=== PATIENT | female | born 1950 | race Caucasian/White ===

== ENCOUNTER 2019-12-23 22:20 | Observation (INO) | payer OTHER ==
[~2019-12-23] VITALS: Ht 162.6 cm; Wt 86.9 kg
--- NOTE | 2019-12-23 22:51 | NUR ---
THIS PT WAS BIB HER GRANDDAUGHTER. SHE HAS A HX OF HTN. SHE FELL DOWN A STAIR A WEEK AGO. SHE STATES HER CP PAIN STARTED LAST SATURDAY, DESCRIBES IT MORE ABD PAIN THAT BECAME A SHARP CHEST PAIN YESTERDAY.
--- NOTE | 2019-12-23 22:53 | NUR ---
EKG DONE IN TRIAGE.
[2019-12-23] MEDS ORDERED: KETOROLAC 30 MG/1 ML ONE (22:56)
[2019-12-23] MEDS ORDERED: CYCLOBENZAPRINE 10 MG TABLET ONE (22:56)
[2019-12-23] MEDS ORDERED: KETOROLAC 30 MG/1 ML IM ONE (23:00)
[2019-12-23] MEDS ORDERED: CYCLOBENZAPRINE 10 MG TABLET PO ONE (23:00)
--- NOTE | 2019-12-23 23:01 | NUR ---
PT TO IMAGING
[2019-12-23 23:33] LABS: BASOPHILS # (AUTO) 0.06 x10^3/uL (0-0.1); BASOPHILS % (AUTO) 1 % (0-1); EOSINOPHILS # (AUTO) 0.14 x10^3/uL (0-0.4); EOSINOPHILS % (AUTO) 2 % (1-7); LYMPHOCYTES # (AUTO) 1.55 x10^3/uL (1-3.4); LYMPHOCYTES % (AUTO) 19 % (22-44); MD NO; MEAN CORPUSCULAR HEMOGLOBIN 27.5 pg (27.0-34.8); MEAN CORPUSCULAR VOLUME 83.2 fL (80-100); MEAN PLATELET VOLUME 7.1 fL (7.4-10.4); MONOCYTES # (AUTO) 0.51 x10^3/uL (0.2-0.8); MONOCYTES % (AUTO) 6 % (2-9); NEUTROPHILS # (AUTO) 6.03 x10^3/uL (1.8-6.8); NEUTROPHILS % (AUTO) 73 % (42-75); PLATELET COUNT 331 x10^3/uL (130-400); RED CELL DISTRIBUTION WIDTH 14.5 % (9.6-15.2)
[2019-12-23 23:43] LABS: ALANINE AMINOTRANSFERASE 19 U/L (12-78); ANION GAP 4 mmol/L (5-15); CALCIUM 9.4 mg/dL (8.5-10.1); CHLORIDE 101 mmol/L (98-107); CREATININE 0.71 mg/dL (0.55-1.02)
[2019-12-23 23:48] LABS: ALKALINE PHOSPHATASE 79 U/L (45-117); BILIRUBIN,TOTAL 0.4 mg/dL (0.2-1.0); TOTAL PROTEIN 7.5 g/dL (6.4-8.2); TROPONIN I < 0.015 ng/mL (0.000-0.045)
[2019-12-24] MEDS ORDERED: AZITHROMYCIN 500 MG in SODIUM CHLORIDE 0.9% 250 ML IV ONE
[2019-12-24] MEDS ORDERED: CEFTRIAXONE PMX 1GM/50ML 50 ML IV ONE
[2019-12-24] MEDS ORDERED: SODIUM CHLORIDE FLUSH 10ML SYR IVF ONE
--- NOTE | 2019-12-24 00:04 | NUR ---
AWAITING BLOOD CULTURES. IV IN PLACE FOR CT.
[2019-12-24] MEDS ORDERED: OMNIPAQUE 350 MG/ML, 75ML BOTTLE ONE (00:29)
[2019-12-24] MEDS ORDERED: CEFTRIAXONE PMX 1GM/50ML 50 ML ONE (00:37)
--- NOTE | 2019-12-24 00:41 | NUR ---
ABX ADMINISTERED AFTER BLOOD CULTURES DRAWN X2.
--- NOTE | 2019-12-24 01:10 | NUR ---
PT DOES NOT KNOW HOME MEDS, MED REC UNABLE TO BE COMPLETE AT THIS TIME.
--- NOTE | 2019-12-24 01:24 | NUR ---
Patient with [facility]. Attempted to transfer to [facility] and denied by Eddie at [facility].
[2019-12-24] MEDS ORDERED: SODIUM CHLORIDE 0.9% 1,000ML IVBOLUS ONE ×2 (01:30)
[2019-12-24] MEDS ORDERED: IBUPROFEN 600 MG TABLET PO PRN (02:00)
[2019-12-24] MEDS ORDERED: DOCUSATE 100 MG CAPSULE PO PRN (02:00)
[2019-12-24] MEDS ORDERED: KETOROLAC 30 MG/1 ML IV PRN ×2 (02:00→08:49)
[2019-12-24] MEDS ORDERED: GUAIFENESIN/DM 200-20MG, 10ML UDC PO PRN (02:00)
[2019-12-24] MEDS ORDERED: ONDANSETRON 2MG/ML, 2ML IVPush PRN (02:00)
[2019-12-24] MEDS ORDERED: morphine SULFATE 10 MG/ML, 1ML IVPush PRN (02:00)
[2019-12-24] MEDS ORDERED: ACETAMINOPHEN 325 MG TABLET PO PRN (02:00)
[2019-12-24] MEDS ORDERED: ENOXAPARIN 40 MG/0.4 ML SQ SCH (02:00)
[2019-12-24] MEDS ORDERED: hydrALAzine 20 MG/ML, 1ML IVPush PRN (02:00)
[2019-12-24] MEDS ORDERED: ENOXAPARIN 40 MG/0.4 ML ONE (03:04)
--- NOTE | 2019-12-24 03:42 | NUR ---
PT SITTING IN BED, TALKING WITH DAUGHTER. NO SIGNS OF DISTRESS. CALL LIGHT WITHIN REACH. WILL CONTINUE TO MONITOR.
[2019-12-24] MEDS ORDERED: KETOROLAC 30 MG/1 ML ONE (05:36)
[2019-12-24] MEDS ORDERED: LOSA25TA25 PO (05:42)
[2019-12-24] MEDS ORDERED: ATOR20TA37 PO (05:43)
[2019-12-24] MEDS ORDERED: METF500T17 PO (05:43)
--- NOTE | 2019-12-24 06:51 | NUR ---
LATE ENTRY FOR PT CARE. PT HAD DAUGHTER AT BEDSIDE UNTIL 0500. HOSPITAL BED WAS REQUESTED AT THIS TIME. NO HOSPITAL BEDS AVAILABLE. PT LAYING IN BED, IN AND OUT OF SLEEP DUE TO BEING IN THE HOSPITAL AND BEING UNCOMFORTABLE. PT HAS HAD BELONGINGS IN REACH THE ENTIRE TIME, CALL LIGHT IN REACH, BEDSIDE COMMODE REMAINS IN REACH. LIGHTS WERE TURNED OFF, WARM BLANKET PROVIDED. ALL NEEDS MET AT THIS TIME.
[2019-12-24] MEDS: INSULIN LISPRO 100 UNITS/ML, PEN SQ-INSULIN SCH ×2 (07:00→11:59)
--- NOTE | 2019-12-24 07:01 | NUR ---
BEDSIDE REPORT GIVEN TO AMBER AVIAL; TO ASSUME FULL CARE.
--- NOTE | 2019-12-24 07:05 | NUR ---
I AM ASSUMING CARE OF THIS PT FROM RUPERTO (RN) AT THIS TIME. SBAR REPORT WAS EXCHANGED AT THE BEDSIDE.
--- NOTE | 2019-12-24 07:26 | NUR ---
VERBAL SBAR EXCHANGED W NHAN DANG) ON THE MEDICAL FLOOR. SBAR REPORT WAS EXCHANGED AT THE BEDSIDE.
[2019-12-24] MEDS ORDERED: LISINOPRIL 5 MG TABLET PO SCH (09:00)
[2019-12-24] MEDS ORDERED: LOSA50TA14 PO (09:29)
[2019-12-24 09:39] VITALS: BP 177/98
[2019-12-24] MEDS ORDERED: HYDROcodone/APAP 5/325 TABLET PO PRN (10:00)
[2019-12-24] MEDS ORDERED: HYDR-3237 PO (11:51)
[2019-12-24] MEDS ORDERED: ONDA4TAB13 SL (11:56)
[2019-12-24] MEDS ORDERED: AMOX1TAB64 PO (11:59)
[2019-12-24] MEDS ORDERED: metFORMIN 500 MG TABLET PO SCH (17:00)
[2019-12-24] MEDS ORDERED: ATORVASTATIN 20 MG TABLET PO SCH (21:00)
[2019-12-25] MEDS ORDERED: LOSARTAN 50MG TABLET PO SCH (09:00)
== END 2019-12-24 15:28 | disposition home or self-care (01) ==
LOC: ED 23:28 → EDIP 12-24 01:14 → INTOOBSV 12-24 01:14 → 4NW 12-24 07:49
PROVIDERS: ADMIT Hospitalist; ATTEND Internal Medicine
DX: S22.42XA Multiple fractures of ribs, left side, initial encounter for closed fracture (principal); Z20.828 Contact with and (suspected) exposure to other viral communicable diseases; J96.91 Respiratory failure, unspecified with hypoxia; J18.9 Pneumonia, unspecified organism; E11.9 Type 2 diabetes mellitus without complications; E78.5 Hyperlipidemia, unspecified; I10 Essential (primary) hypertension; Z90.710 Acquired absence of both cervix and uterus; Z79.84 Long term (current) use of oral hypoglycemic drugs; W01.0XXA Fall on same level from slipping, tripping and stumbling without subsequent striking against object, initial encounter; Y93.89 Activity, other specified; Y92.89 Other specified places as the place of occurrence of the external cause
CPT/HCPCS: 36415; 71046; 71275; 80053; 82962; 83036; 83605; 84145; 84484; 85025; 87040; 93005; 96365; 96367; 96372; 96375; 99285; G0378; J0456; J0696; J1650; J1815; J1885; J7030; J7050; Q9967; U0001